=== PATIENT | male | born 1995 | race Caucasian/White ===

== ENCOUNTER 2025-10-02 00:27 | Emergency (ER) | payer MEDICAID ==
[~2025-10-02] VITALS: Ht 175.3 cm; Wt 87.0 kg
[2025-10-02 00:38] VITALS: TEMP 98.7; O2SAT 100
[2025-10-02] MEDS ORDERED: ALPRAZOLAM 0.5 MG TABLET PO ONE (01:15)
[2025-10-02 01:29] LABS: BASOPHILS % 0.3 % (0.0-2.0); EOSINOPHILS % 1.1 % (0.0-5.0); HEMATOCRIT. 47.5 % (42.0-52.0); HEMOGLOBIN. 15.9 g/dL (14.0-18.0); LYMPHOCYTES % 36.3 % (20.0-50.0); MEAN PLATELET VOLUME 7.3 fl (7.4-10.4); MONOCYTES % 7.9 % (2.0-8.0); NEUTROPHILS % 54.4 % (40.0-76.0); PLATELET 284 x1000/uL (130-400); RED BLOOD CELL COUNT 5.27 mill/uL (4.7-6.1); RED CELL DISTRIBUTION WIDTH 13.1 % (11.6-14.6)
[2025-10-02] MEDS: ALPRAZOLAM 0.25 MG TABLET PO NR (01:30)
[2025-10-02 01:44] LABS: CREATININE 0.7 mg/dL (0.6-1.3); UREA NITROGEN BLOOD 9 mg/dL (9-23)
[2025-10-02 01:46] LABS: ASPARTATE AMINOTRANSFERASE 17 IU/L (<34)
[2025-10-02 01:47] LABS: BILIRUBIN TOTAL 0.9 mg/dL (0.1-1.0); PROTEIN TOTAL 7.1 g/dL (6.0-8.3)
[2025-10-02 03:53] VITALS: BP 132/92; PULSE 65; RESP 15; O2SAT 97
== END 2025-10-02 03:56 | disposition home or self-care (01) ==
LOC: ER 00:27
DX: F41.0 Panic disorder [episodic paroxysmal anxiety] (principal); F20.9 Schizophrenia, unspecified
CPT/HCPCS: 36415; 80053; 85025; 99283